=== PATIENT | female | born 1970 | race Caucasian/White ===

== ENCOUNTER 2019-04-21 19:37 | Inpatient (IN) | payer OTHER ==
[~2019-04-21] VITALS: Ht 162.6 cm; Wt 78.0 kg
[2019-04-21 20:08] VITALS: BP_SYST 136
[2019-04-21] MEDS ORDERED: PIPERACILLIN/TAZO 3.38 GM in D5W 50 ML IV ONE (22:15)
[2019-04-21] MEDS ORDERED: PIPERACILLIN/TAZOBACTAM 3.375 GM/VIAL (ZOSYN) IV ONE (22:31)
[2019-04-21 22:58] LABS: BILIRUBIN,URINE NEGATIVE (NEGATIVE); BLOOD, URINE 2+ (NEGATIVE); CLARITY/URINE HAZY (CLEAR); COLOR,URINE YELLOW (YELLOW); GLUCOSE,URINE TRACE (NEGATIVE); KETONES,URINE 1+ (NEGATIVE); LEUKOCYTE ESTERASE ,URINE 2+ (NEGATIVE); NITRITE, URINE POSITIVE (NEGATIVE); PROTEIN URINE NEGATIVE (NEGATIVE)
[2019-04-21 23:04] LABS: BASOPHILS % (AUTO) 0.3 % (0.0-2.0); EOSINOPHILS # (AUTO) 0.1 K/uL (0.0-0.4); EOSINOPHILS % (AUTO) 0.8 % (0.0-4.0); HEMATOCRIT 38.8 % (36-48); HEMOGLOBIN 12.8 g/dL (12.0-16.0); LYMPHOCYTES # (AUTO) 2.7 K/uL (1.0-5.5); LYMPHOCYTES % (AUTO) 16.9 % (20.5-51.5); MEAN CORPUSCULAR HEMOGLOBIN 28 pg (27-31); MEAN CORPUSCULAR HGB CONC 33 % (32-36); MEAN CORPUSCULAR VOLUME 85 fL (79.0-98.0); MONOCYTES # (AUTO) 1.3 K/uL (0.0-1.0); MONOCYTES % (AUTO) 8.4 % (1.7-9.3); NEUTROPHILS # (AUTO) 11.8 K/uL (1.8-7.7); NEUTROPHILS % (AUTO) 73.6 % (40.0-70.0); PLATELET COUNT (AUTO) 460 K/uL (130-430); RED BLOOD CELL COUNT(AUTO) 4.56 MIL/uL (4.2-6.2); RED CELL DISTRIBUTION WIDTH 12.7 % (9.0-15.0)
[2019-04-21 23:08] LABS: CREATININE 0.69 mg/dL (0.55-1.30); POTASSIUM 3.6 mmol/L (3.5-5.1)
[2019-04-21 23:09] LABS: RBC,URINE 20-50 /HPF (0-3)
[2019-04-21 23:10] LABS: BACTERIA,URINE MANY /HPF (None Seen); WBC,URINE 20-50 /HPF (0-3); YEAST,URINE Few /HPF (None Seen)
[2019-04-21] MEDS ORDERED: ASPI-1154 PO (23:11)
[2019-04-21 23:12] LABS: INR 1.1 (0.8-1.2); PROTHROMBIN TIME 11.1 SECS (9.5-12.5)
[2019-04-21 23:14] LABS: ALBUMIN 2.8 g/dL (3.4-4.8); TOTAL BILIRUBIN 0.6 mg/dL (0.0-1.0)
[2019-04-22] MEDS ORDERED: ENOXAPARIN SODIUM 40 MG/0.4 ML SYRINGE SUBCUT ONE (00:30)
[2019-04-22] MEDS ORDERED: DEXTROSE 50% JECT 50 ML DISP.SYRIN IVP PRN (00:45)
[2019-04-22] MEDS ORDERED: ONDANSETRON HCL 4 MG/2 ML VIAL IVP PRN (00:45)
[2019-04-22] MEDS ORDERED: HYDROcodone/ACETAMIN 5-325 MG TAB (NORCO/ VICODIN) PO PRN (00:45)
[2019-04-22] MEDS ORDERED: VANCOMYCIN HCL 1 GM/NS PREMIX 250 ML IV SCH (01:00)
[2019-04-22 01:25] VITALS: BP_SYST 120
[2019-04-22] MEDS ORDERED: PIPERACILLIN/TAZOBACTAM 3.375 GM/VIAL (ZOSYN) IV ONE (03:05)
[2019-04-22] MEDS ORDERED: VANCOMYCIN HCL 1000 MG/VIAL IV ONE (03:06)
[2019-04-22] MEDS: PIPERACILLIN/TAZO 3.375/DEX-IS 50 ML IV SCH ×3 (05:57→17:22)
[2019-04-22] MEDS: INSULIN REGULAR, HUMAN 100 UNITS/ML, 10 ML VIAL (humuLIN R) SUBCUT PRN ×4 (06:02→21:21)
[2019-04-22 06:34] LABS: BASOPHILS % (AUTO) 0.2 % (0.0-2.0); EOSINOPHILS # (AUTO) 0.2 K/uL (0.0-0.4); EOSINOPHILS % (AUTO) 1.3 % (0.0-4.0); HEMATOCRIT 35.9 % (36-48); HEMOGLOBIN 11.7 g/dL (12.0-16.0); LYMPHOCYTES # (AUTO) 3.8 K/uL (1.0-5.5); LYMPHOCYTES % (AUTO) 25.4 % (20.5-51.5); MEAN CORPUSCULAR HEMOGLOBIN 28 pg (27-31); MEAN CORPUSCULAR HGB CONC 33 % (32-36); MEAN CORPUSCULAR VOLUME 84 fL (79.0-98.0); MONOCYTES # (AUTO) 1.6 K/uL (0.0-1.0); MONOCYTES % (AUTO) 10.9 % (1.7-9.3); NEUTROPHILS # (AUTO) 9.2 K/uL (1.8-7.7); NEUTROPHILS % (AUTO) 62.2 % (40.0-70.0); PLATELET COUNT (AUTO) 430 K/uL (130-430); RED BLOOD CELL COUNT(AUTO) 4.27 MIL/uL (4.2-6.2); RED CELL DISTRIBUTION WIDTH 12.8 % (9.0-15.0); WHITE BLOOD COUNT (AUTO) 14.9 K/uL (4.8-10.8)
[2019-04-22 07:04] LABS: INR 1.1 (0.8-1.2); PROTHROMBIN TIME 11.5 SECS (9.5-12.5)
[2019-04-22 07:12] LABS: ALBUMIN 2.3 g/dL (3.4-4.8); CALCIUM 8.7 mg/dL (8.4-11.0); CREATININE 0.53 mg/dL (0.55-1.30); POTASSIUM 3.5 mmol/L (3.5-5.1); THYROID STIMULATING HORMONE 0.45 uIu/mL (0.34-4.82); TOTAL BILIRUBIN 0.5 mg/dL (0.0-1.0)
[2019-04-22 08:00] VITALS: BP_SYST 131
[2019-04-22] MEDS: ASPIRIN 81 MG TABLET(ECOTRIN) PO SCH (08:46)
[2019-04-22] MEDS: PANTOPRAZOLE SODIUM 40 MG TAB PO SCH (08:46)
[2019-04-22] MEDS: ENOXAPARIN SODIUM 40 MG/0.4 ML SYRINGE SUBCUT SCH (08:50)
[2019-04-22] MEDS: VANCOMYCIN HCL 1 GM/NS PREMIX 250 ML IV SCH ×2 (11:36→20:52)
[2019-04-22 11:37] VITALS: BP_SYST 129
[2019-04-22 11:42] LABS: BILIRUBIN,URINE NEGATIVE (NEGATIVE); BLOOD, URINE 2+ (NEGATIVE); CLARITY/URINE CLEAR (CLEAR); COLOR,URINE YELLOW (YELLOW); GLUCOSE,URINE NEGATIVE (NEGATIVE); KETONES,URINE 1+ (NEGATIVE); LEUKOCYTE ESTERASE ,URINE 2+ (NEGATIVE); NITRITE, URINE POSITIVE (NEGATIVE); PROTEIN URINE NEGATIVE (NEGATIVE)
[2019-04-22 11:56] LABS: BACTERIA,URINE FEW /HPF (None Seen)
[2019-04-22 15:36] VITALS: BP_SYST 135
[2019-04-22] MEDS ORDERED: BALSAM PERU/CASTOR OIL 60 GM OINT...G. TP ONE (16:15)
[2019-04-22 19:00] VITALS: BP_SYST 143
[2019-04-22 20:00] VITALS: BP_SYST 143
[2019-04-22] MEDS ORDERED: FLUCONAZOLE 200 mg/ NS 200 ML IV ONE (21:12)
[2019-04-22] MEDS: FLUCONAZOLE 200 mg/ NS 100 ML IV SCH (21:12)
[2019-04-23] VITALS: BP_SYST 120
[2019-04-23] MEDS: VANCOMYCIN HCL 1 GM/NS PREMIX 250 ML IV SCH ×3 (04:22→21:41)
[2019-04-23] MEDS: PIPERACILLIN/TAZO 3.375/DEX-IS 50 ML IV SCH ×5 (06:14→23:31)
[2019-04-23] MEDS: INSULIN REGULAR, HUMAN 100 UNITS/ML, 10 ML VIAL (humuLIN R) SUBCUT PRN ×4 (06:25→22:28)
[2019-04-23 07:00] LABS: CALCIUM 9.2 mg/dL (8.4-11.0); POTASSIUM 3.9 mmol/L (3.5-5.1)
[2019-04-23 07:08] LABS: CREATININE 0.75 mg/dL (0.55-1.30)
[2019-04-23 07:10] LABS: BASOPHILS # (AUTO) 0.1 K/uL (0.0-0.2); BASOPHILS % (AUTO) 0.4 % (0.0-2.0); EOSINOPHILS # (AUTO) 0.2 K/uL (0.0-0.4); EOSINOPHILS % (AUTO) 1.7 % (0.0-4.0); HEMATOCRIT 37.2 % (36-48); HEMOGLOBIN 12.2 g/dL (12.0-16.0); LYMPHOCYTES # (AUTO) 2.8 K/uL (1.0-5.5); LYMPHOCYTES % (AUTO) 20.7 % (20.5-51.5); MEAN CORPUSCULAR HEMOGLOBIN 28 pg (27-31); MEAN CORPUSCULAR HGB CONC 33 % (32-36); MONOCYTES # (AUTO) 1.3 K/uL (0.0-1.0); MONOCYTES % (AUTO) 9.7 % (1.7-9.3); NEUTROPHILS # (AUTO) 9.3 K/uL (1.8-7.7); NEUTROPHILS % (AUTO) 67.5 % (40.0-70.0); PLATELET COUNT (AUTO) 414 K/uL (130-430); RED BLOOD CELL COUNT(AUTO) 4.34 MIL/uL (4.2-6.2); RED CELL DISTRIBUTION WIDTH 12.6 % (9.0-15.0); WHITE BLOOD COUNT (AUTO) 13.7 K/uL (4.8-10.8)
[2019-04-23 07:16] LABS: MEAN CORPUSCULAR VOLUME 86 fL (79.0-98.0)
[2019-04-23 08:00] VITALS: BP_SYST 124
[2019-04-23] MEDS: PANTOPRAZOLE SODIUM 40 MG TAB PO SCH (08:58)
[2019-04-23] MEDS: ASPIRIN 81 MG TABLET(ECOTRIN) PO SCH (08:58)
[2019-04-23] MEDS: ENOXAPARIN SODIUM 40 MG/0.4 ML SYRINGE SUBCUT SCH (08:59)
[2019-04-23] MEDS: BALSAM PERU/CASTOR OIL 60 GM OINT...G. TP SCH (09:02)
[2019-04-23 12:00] VITALS: BP_SYST 116
[2019-04-23] MEDS ORDERED: INSULIN GLARGINE 100 UNITS/ML 10 ML VIAL SUBCUT ONE (14:00)
[2019-04-23 16:00] VITALS: BP_SYST 103
[2019-04-23 20:00] VITALS: BP_SYST 122
[2019-04-23] MEDS: FLUCONAZOLE 200 mg/ NS 100 ML IV SCH (20:14)
[2019-04-24 01:23] VITALS: BP_SYST 128
[2019-04-24] MEDS: VANCOMYCIN HCL 1 GM/NS PREMIX 250 ML IV SCH ×3 (04:35→20:52)
[2019-04-24] MEDS: PIPERACILLIN/TAZO 3.375/DEX-IS 50 ML IV SCH ×2 (06:31→11:40)
[2019-04-24] MEDS: INSULIN REGULAR, HUMAN 100 UNITS/ML, 10 ML VIAL (humuLIN R) SUBCUT PRN ×4 (06:33→20:53)
[2019-04-24 08:00] VITALS: BP_SYST 107
[2019-04-24] MEDS: ASPIRIN 81 MG TABLET(ECOTRIN) PO SCH (08:26)
[2019-04-24] MEDS: PANTOPRAZOLE SODIUM 40 MG TAB PO SCH (08:26)
[2019-04-24] MEDS: INSULIN GLARGINE 100 UNITS/ML 10 ML VIAL SUBCUT SCH (08:28)
[2019-04-24] MEDS: ENOXAPARIN SODIUM 40 MG/0.4 ML SYRINGE SUBCUT SCH (08:29)
[2019-04-24] MEDS: BALSAM PERU/CASTOR OIL 60 GM OINT...G. TP SCH (08:29)
[2019-04-24 11:30] VITALS: BP_SYST 117
[2019-04-24] MEDS: CEFTAZIDIME 1 GM in D5W 50 ML IV SCH ×2 (14:00→22:31)
[2019-04-24] MEDS: SILVER SULFADIAZINE 1%, 25 GM TOPICAL CREAM (SSD) TP SCH ×2 (14:01→20:57)
[2019-04-24 16:08] VITALS: BP_SYST 131
[2019-04-24] MEDS: FLUCONAZOLE 200 mg/ NS 100 ML IV SCH (19:37)
[2019-04-24 19:45] VITALS: BP_SYST 125
[2019-04-25 01:12] VITALS: BP_SYST 120
[2019-04-25] MEDS: VANCOMYCIN HCL 1 GM/NS PREMIX 250 ML IV SCH (04:14)
[2019-04-25] MEDS: CEFTAZIDIME 1 GM in D5W 50 ML IV SCH ×3 (06:14→21:47)
[2019-04-25] MEDS: INSULIN REGULAR, HUMAN 100 UNITS/ML, 10 ML VIAL (humuLIN R) SUBCUT PRN ×4 (06:17→20:33)
[2019-04-25 08:00] VITALS: BP_SYST 114
[2019-04-25] MEDS: ENOXAPARIN SODIUM 40 MG/0.4 ML SYRINGE SUBCUT SCH (09:23)
[2019-04-25] MEDS: PANTOPRAZOLE SODIUM 40 MG TAB PO SCH (09:23)
[2019-04-25] MEDS: ASPIRIN 81 MG TABLET(ECOTRIN) PO SCH (09:23)
[2019-04-25] MEDS: INSULIN GLARGINE 100 UNITS/ML 10 ML VIAL SUBCUT SCH (09:28)
[2019-04-25] MEDS: SILVER SULFADIAZINE 1%, 25 GM TOPICAL CREAM (SSD) TP SCH ×2 (09:32→20:35)
[2019-04-25] MEDS: BALSAM PERU/CASTOR OIL 60 GM OINT...G. TP SCH (09:32)
[2019-04-25 11:31] VITALS: BP_SYST 128
[2019-04-25] MEDS: VANCOMYCIN HCL 1,250 MG in NS 250 ML IV SCH ×2 (14:04→21:52)
[2019-04-25 15:27] VITALS: BP_SYST 141
[2019-04-25 19:25] LABS: PROTHROMBIN TIME 10.7 SECS (9.5-12.5)
[2019-04-25 20:24] VITALS: BP_SYST 149
[2019-04-25] MEDS: FLUCONAZOLE 200 mg/ NS 100 ML IV SCH (20:28)
[2019-04-26 00:30] VITALS: BP_SYST 129
[2019-04-26] MEDS: CEFTAZIDIME 1 GM in D5W 50 ML IV SCH ×3 (05:36→22:28)
[2019-04-26] MEDS: VANCOMYCIN HCL 1,250 MG in NS 250 ML IV SCH ×3 (05:44→20:24)
[2019-04-26] MEDS: INSULIN REGULAR, HUMAN 100 UNITS/ML, 10 ML VIAL (humuLIN R) SUBCUT PRN ×4 (06:22→20:31)
[2019-04-26 08:00] VITALS: BP_SYST 117
[2019-04-26] MEDS: PANTOPRAZOLE SODIUM 40 MG TAB PO SCH (09:02)
[2019-04-26] MEDS: ASPIRIN 81 MG TABLET(ECOTRIN) PO SCH (09:02)
[2019-04-26] MEDS: ENOXAPARIN SODIUM 40 MG/0.4 ML SYRINGE SUBCUT SCH (09:03)
[2019-04-26] MEDS: INSULIN GLARGINE 100 UNITS/ML 10 ML VIAL SUBCUT SCH (09:04)
[2019-04-26] MEDS: SILVER SULFADIAZINE 1%, 25 GM TOPICAL CREAM (SSD) TP SCH ×2 (09:05→22:27)
[2019-04-26] MEDS: BALSAM PERU/CASTOR OIL 60 GM OINT...G. TP SCH (09:05)
[2019-04-26 10:07] LABS: BASOPHILS % (AUTO) 0.4 % (0.0-2.0); EOSINOPHILS # (AUTO) 0.3 K/uL (0.0-0.4); EOSINOPHILS % (AUTO) 2.2 % (0.0-4.0); HEMATOCRIT 38.7 % (36-48); HEMOGLOBIN 12.9 g/dL (12.0-16.0); LYMPHOCYTES # (AUTO) 2.2 K/uL (1.0-5.5); LYMPHOCYTES % (AUTO) 16.6 % (20.5-51.5); MEAN CORPUSCULAR HEMOGLOBIN 28 pg (27-31); MEAN CORPUSCULAR HGB CONC 33 % (32-36); MEAN CORPUSCULAR VOLUME 85 fL (79.0-98.0); MONOCYTES % (AUTO) 7.8 % (1.7-9.3); NEUTROPHILS # (AUTO) 9.5 K/uL (1.8-7.7); PLATELET COUNT (AUTO) 449 K/uL (130-430); RED BLOOD CELL COUNT(AUTO) 4.58 MIL/uL (4.2-6.2); RED CELL DISTRIBUTION WIDTH 12.8 % (9.0-15.0)
[2019-04-26 10:16] LABS: CALCIUM 9.5 mg/dL (8.4-11.0); CREATININE 0.72 mg/dL (0.55-1.30); POTASSIUM 3.6 mmol/L (3.5-5.1)
[2019-04-26 11:11] VITALS: BP_SYST 131
[2019-04-26 15:38] VITALS: BP_SYST 109
[2019-04-26 19:52] VITALS: BP_SYST 125
[2019-04-26] MEDS: FLUCONAZOLE 200 mg/ NS 100 ML IV SCH (19:53)
[2019-04-27 00:02] VITALS: BP_SYST 136
[2019-04-27] MEDS: VANCOMYCIN HCL 1,250 MG in NS 250 ML IV SCH ×3 (05:18→23:12)
[2019-04-27] MEDS: CEFTAZIDIME 1 GM in D5W 50 ML IV SCH ×3 (05:19→22:37)
[2019-04-27] MEDS: INSULIN REGULAR, HUMAN 100 UNITS/ML, 10 ML VIAL (humuLIN R) SUBCUT PRN ×4 (06:06→21:37)
[2019-04-27 08:30] VITALS: BP_SYST 133
[2019-04-27] MEDS: PANTOPRAZOLE SODIUM 40 MG TAB PO SCH (09:19)
[2019-04-27] MEDS: ASPIRIN 81 MG TABLET(ECOTRIN) PO SCH (09:19)
[2019-04-27] MEDS: INSULIN GLARGINE 100 UNITS/ML 10 ML VIAL SUBCUT SCH (09:21)
[2019-04-27] MEDS: ENOXAPARIN SODIUM 40 MG/0.4 ML SYRINGE SUBCUT SCH (09:21)
[2019-04-27] MEDS: SILVER SULFADIAZINE 1%, 25 GM TOPICAL CREAM (SSD) TP SCH ×2 (09:25→21:39)
[2019-04-27] MEDS: BALSAM PERU/CASTOR OIL 60 GM OINT...G. TP SCH (09:25)
[2019-04-27 11:58] VITALS: BP_SYST 125
[2019-04-27 15:41] VITALS: BP_SYST 113
[2019-04-27] MEDS: FLUCONAZOLE 200 mg/ NS 100 ML IV SCH (21:19)
[2019-04-27 23:22] VITALS: BP_SYST 128
[2019-04-28] MEDS: CEFTAZIDIME 1 GM in D5W 50 ML IV SCH ×3 (05:31→23:38)
[2019-04-28] MEDS: INSULIN REGULAR, HUMAN 100 UNITS/ML, 10 ML VIAL (humuLIN R) SUBCUT PRN ×2 (06:02→11:50)
[2019-04-28] MEDS: VANCOMYCIN HCL 1,250 MG in NS 250 ML IV SCH ×3 (06:38→22:25)
[2019-04-28 07:35] LABS: BASOPHILS # (AUTO) 0.1 K/uL (0.0-0.2); BASOPHILS % (AUTO) 0.7 % (0.0-2.0); EOSINOPHILS # (AUTO) 0.3 K/uL (0.0-0.4); EOSINOPHILS % (AUTO) 2.9 % (0.0-4.0); HEMATOCRIT 36.7 % (36-48); HEMOGLOBIN 12.1 g/dL (12.0-16.0); LYMPHOCYTES # (AUTO) 2.6 K/uL (1.0-5.5); LYMPHOCYTES % (AUTO) 21.9 % (20.5-51.5); MEAN CORPUSCULAR HEMOGLOBIN 28 pg (27-31); MEAN CORPUSCULAR HGB CONC 33 % (32-36); MEAN CORPUSCULAR VOLUME 85 fL (79.0-98.0); MONOCYTES # (AUTO) 1.1 K/uL (0.0-1.0); MONOCYTES % (AUTO) 9.2 % (1.7-9.3); NEUTROPHILS # (AUTO) 7.7 K/uL (1.8-7.7); NEUTROPHILS % (AUTO) 65.3 % (40.0-70.0); PLATELET COUNT (AUTO) 405 K/uL (130-430); RED BLOOD CELL COUNT(AUTO) 4.32 MIL/uL (4.2-6.2); RED CELL DISTRIBUTION WIDTH 12.5 % (9.0-15.0); WHITE BLOOD COUNT (AUTO) 11.8 K/uL (4.8-10.8)
[2019-04-28 07:38] LABS: ALBUMIN 2.3 g/dL (3.4-4.8); CALCIUM 9.5 mg/dL (8.4-11.0); CREATININE 0.84 mg/dL (0.55-1.30); POTASSIUM 3.6 mmol/L (3.5-5.1); TOTAL BILIRUBIN 0.3 mg/dL (0.0-1.0)
[2019-04-28 08:00] VITALS: BP_SYST 133
[2019-04-28] MEDS: BALSAM PERU/CASTOR OIL 60 GM OINT...G. TP SCH (09:39)
[2019-04-28] MEDS: SILVER SULFADIAZINE 1%, 25 GM TOPICAL CREAM (SSD) TP SCH ×2 (09:39→21:06)
[2019-04-28] MEDS: ASPIRIN 81 MG TABLET(ECOTRIN) PO SCH (09:40)
[2019-04-28] MEDS: PANTOPRAZOLE SODIUM 40 MG TAB PO SCH (09:40)
[2019-04-28] MEDS: ENOXAPARIN SODIUM 40 MG/0.4 ML SYRINGE SUBCUT SCH (09:43)
[2019-04-28] MEDS: INSULIN GLARGINE 100 UNITS/ML 10 ML VIAL SUBCUT SCH (09:43)
[2019-04-28 12:00] VITALS: BP_SYST 127
[2019-04-28] MEDS ORDERED: DEXTROSE 50% JECT 50 ML DISP.SYRIN IVP PRN (14:30)
[2019-04-28 16:10] VITALS: BP_SYST 140
[2019-04-28] MEDS: INSULIN Lispro 100 UNITS/ML VIAL (humaLOG) SUBCUT SCH (18:08)
[2019-04-28] MEDS: INSULIN LISPRO SLIDING SCALE 100 UNITS/ML VIAL (humaLOG) SUBCUT PRN ×2 (18:09→21:17)
[2019-04-28] MEDS: FLUCONAZOLE 200 mg/ NS 100 ML IV SCH (21:02)
[2019-04-29 00:24] VITALS: BP_SYST 135
[2019-04-29] MEDS: CEFTAZIDIME 1 GM in D5W 50 ML IV SCH ×3 (05:11→22:32)
[2019-04-29] MEDS: VANCOMYCIN HCL 1,250 MG in NS 250 ML IV SCH ×3 (06:17→20:24)
[2019-04-29] MEDS: INSULIN Lispro 100 UNITS/ML VIAL (humaLOG) SUBCUT SCH ×3 (06:32→16:37)
[2019-04-29] MEDS: INSULIN GLARGINE 100 UNITS/ML 10 ML VIAL SUBCUT SCH ×2 (06:32→18:00)
[2019-04-29 07:56] VITALS: BP_SYST 130
[2019-04-29] MEDS ORDERED: POLYMYXIN 500,000/BACIT.10,000 UNITS in NS IRR 1 L IR ONE (08:25)
[2019-04-29] MEDS ORDERED: MIDAZOLAM HCL 5 MG/5 ML VIAL IVP ONE (08:30)
[2019-04-29] MEDS ORDERED: NS 1000 ML IV.SOLN IV ONE (08:30)
[2019-04-29] MEDS ORDERED: ONDANSETRON HCL 4 MG/2 ML VIAL IVP ONE (08:30)
[2019-04-29] MEDS ORDERED: DEXAMETHASONE SOD PHOSPHATE 4 MG/ML VIAL IVP ONE (08:30)
[2019-04-29] MEDS ORDERED: LR 1,000 ML IV.SOLN IV ONE ×2 (08:30)
[2019-04-29] MEDS ORDERED: ROCURONIUM BROMIDE 10 MG/ML (ZEMURON) IV ONE (08:30)
[2019-04-29] MEDS ORDERED: PROPOFOL 200MG/ 20ML VIAL (DIPRIVAN) IV ONE (08:30)
[2019-04-29] MEDS ORDERED: BUPIVACAINE /PF 0.5% 30 ML VIAL INJ ONE (08:30)
[2019-04-29] MEDS ORDERED: KETOROLAC TROMETHAMINE 30 MG VIAL IVP ONE (08:30)
[2019-04-29] MEDS ORDERED: SEVOFLURANE 15 MIN GAS INH ONE (08:30)
[2019-04-29] MEDS ORDERED: fentaNYL CITRATE 250 MCG/5 ML AMP IV ONE (08:30)
[2019-04-29] MEDS: PANTOPRAZOLE SODIUM 40 MG TAB PO SCH (08:42)
[2019-04-29] MEDS: ASPIRIN 81 MG TABLET(ECOTRIN) PO SCH (08:42)
[2019-04-29] MEDS: ENOXAPARIN SODIUM 40 MG/0.4 ML SYRINGE SUBCUT SCH (08:42)
[2019-04-29] MEDS: SILVER SULFADIAZINE 1%, 25 GM TOPICAL CREAM (SSD) TP SCH ×2 (08:43→20:26)
[2019-04-29] MEDS: BALSAM PERU/CASTOR OIL 60 GM OINT...G. TP SCH (08:43)
[2019-04-29] MEDS ORDERED: LR 1,000 ML IV SCH (09:37)
[2019-04-29] MEDS ORDERED: HYDROmorphone 2 MG/ML VIAL IVP PRN ×2 (09:45)
[2019-04-29] MEDS ORDERED: HYDROmorphone 1 MG INJ. 1 MG/ML AMPUL IVP PRN (09:45)
[2019-04-29] MEDS ORDERED: MEPERIDINE HCL/PF 25 MG/ML DISP.SYRIN IVP PRN (09:45)
[2019-04-29] MEDS: INSULIN REGULAR, HUMAN 100 UNITS/ML, 10 ML VIAL IVP ONE ×2 (11:00→11:48)
[2019-04-29] MEDS ORDERED: INSULIN REGULAR, HUMAN 100 UNITS/ML, 10 ML VIAL (humuLIN R) ONE (11:04)
[2019-04-29 11:45] VITALS: BP_SYST 134
[2019-04-29] MEDS: INSULIN LISPRO SLIDING SCALE 100 UNITS/ML VIAL (humaLOG) SUBCUT PRN ×3 (12:01→20:24)
[2019-04-29] MEDS ORDERED: INSULIN GLARGINE 100 UNITS/ML 10 ML VIAL SUBCUT SCH (19:00)
[2019-04-29 20:00] VITALS: BP_SYST 138
[2019-04-30 00:22] VITALS: BP_SYST 144
[2019-04-30] MEDS: VANCOMYCIN HCL 1,250 MG in NS 250 ML IV SCH ×2 (04:06→12:10)
[2019-04-30 05:05] LABS: BASOPHILS # (AUTO) 0.1 K/uL (0.0-0.2); BASOPHILS % (AUTO) 0.7 % (0.0-2.0); EOSINOPHILS # (AUTO) 0.1 K/uL (0.0-0.4); EOSINOPHILS % (AUTO) 0.7 % (0.0-4.0); HEMATOCRIT 34.6 % (36-48); HEMOGLOBIN 11.3 g/dL (12.0-16.0); LYMPHOCYTES % (AUTO) 12.8 % (20.5-51.5); MEAN CORPUSCULAR HEMOGLOBIN 28 pg (27-31); MEAN CORPUSCULAR HGB CONC 33 % (32-36); MEAN CORPUSCULAR VOLUME 85 fL (79.0-98.0); MONOCYTES # (AUTO) 1.1 K/uL (0.0-1.0); MONOCYTES % (AUTO) 7.1 % (1.7-9.3); NEUTROPHILS # (AUTO) 12.3 K/uL (1.8-7.7); NEUTROPHILS % (AUTO) 78.7 % (40.0-70.0); PLATELET COUNT (AUTO) 376 K/uL (130-430); RED BLOOD CELL COUNT(AUTO) 4.07 MIL/uL (4.2-6.2); RED CELL DISTRIBUTION WIDTH 12.7 % (9.0-15.0); WHITE BLOOD COUNT (AUTO) 15.7 K/uL (4.8-10.8)
[2019-04-30 05:18] LABS: CALCIUM 8.9 mg/dL (8.4-11.0); CREATININE 0.82 mg/dL (0.55-1.30); POTASSIUM 3.4 mmol/L (3.5-5.1)
[2019-04-30] MEDS: CEFTAZIDIME 1 GM in D5W 50 ML IV SCH ×3 (06:12→21:30)
[2019-04-30] MEDS: INSULIN GLARGINE 100 UNITS/ML 10 ML VIAL SUBCUT SCH (06:13)
[2019-04-30] MEDS: INSULIN Lispro 100 UNITS/ML VIAL (humaLOG) SUBCUT SCH ×3 (06:14→17:33)
[2019-04-30] MEDS: INSULIN LISPRO SLIDING SCALE 100 UNITS/ML VIAL (humaLOG) SUBCUT PRN ×4 (06:15→21:30)
[2019-04-30] MEDS: HYDROcodone/ACETAMIN 5-325 MG TAB (NORCO/ VICODIN) PO PRN ×2 (06:59→17:36)
[2019-04-30 08:55] VITALS: BP_SYST 110
[2019-04-30] MEDS: ASPIRIN 81 MG TABLET(ECOTRIN) PO SCH (08:57)
[2019-04-30] MEDS: PANTOPRAZOLE SODIUM 40 MG TAB PO SCH (08:58)
[2019-04-30] MEDS: SILVER SULFADIAZINE 1%, 25 GM TOPICAL CREAM (SSD) TP SCH ×2 (08:59→21:30)
[2019-04-30] MEDS: ENOXAPARIN SODIUM 40 MG/0.4 ML SYRINGE SUBCUT SCH (08:59)
[2019-04-30] MEDS: BALSAM PERU/CASTOR OIL 60 GM OINT...G. TP SCH (09:00)
[2019-04-30 11:31] VITALS: BP_SYST 113
[2019-04-30] MEDS ORDERED: POTASSIUM CHLORIDE 20 MEQ TAB.PRT.SR PO ONE (12:15)
[2019-04-30 15:05] VITALS: BP_SYST 110
[2019-04-30 20:00] VITALS: BP_SYST 117
[2019-05-01 01:39] VITALS: BP_SYST 128
[2019-05-01] MEDS: MORPHINE 4 MG/ML INJ. SYRINGE IVP PRN ×2 (02:23→06:25)
[2019-05-01] MEDS: VANCOMYCIN HCL 1 GM/NS PREMIX 250 ML IV SCH ×3 (02:25→18:09)
[2019-05-01] MEDS: INSULIN Lispro 100 UNITS/ML VIAL (humaLOG) SUBCUT SCH ×3 (06:27→18:09)
[2019-05-01] MEDS: INSULIN GLARGINE 100 UNITS/ML 10 ML VIAL SUBCUT SCH (06:28)
[2019-05-01] MEDS: INSULIN LISPRO SLIDING SCALE 100 UNITS/ML VIAL (humaLOG) SUBCUT PRN ×2 (06:29→21:27)
[2019-05-01] MEDS: CEFTAZIDIME 1 GM in D5W 50 ML IV SCH ×3 (06:29→21:28)
[2019-05-01] MEDS: PANTOPRAZOLE SODIUM 40 MG TAB PO SCH (08:33)
[2019-05-01] MEDS: ASPIRIN 81 MG TABLET(ECOTRIN) PO SCH (08:34)
[2019-05-01] MEDS: ENOXAPARIN SODIUM 40 MG/0.4 ML SYRINGE SUBCUT SCH (08:36)
[2019-05-01 08:52] LABS: BASOPHILS # (AUTO) 0.1 K/uL (0.0-0.2); BASOPHILS % (AUTO) 0.6 % (0.0-2.0); EOSINOPHILS # (AUTO) 0.5 K/uL (0.0-0.4); EOSINOPHILS % (AUTO) 4.3 % (0.0-4.0); HEMATOCRIT 35.1 % (36-48); HEMOGLOBIN 11.7 g/dL (12.0-16.0); LYMPHOCYTES # (AUTO) 2.1 K/uL (1.0-5.5); LYMPHOCYTES % (AUTO) 19.7 % (20.5-51.5); MEAN CORPUSCULAR HEMOGLOBIN 28 pg (27-31); MEAN CORPUSCULAR HGB CONC 33 % (32-36); MEAN CORPUSCULAR VOLUME 85 fL (79.0-98.0); MONOCYTES % (AUTO) 9.2 % (1.7-9.3); NEUTROPHILS # (AUTO) 7.1 K/uL (1.8-7.7); NEUTROPHILS % (AUTO) 66.2 % (40.0-70.0); PLATELET COUNT (AUTO) 376 K/uL (130-430); RED BLOOD CELL COUNT(AUTO) 4.12 MIL/uL (4.2-6.2); WHITE BLOOD COUNT (AUTO) 10.7 K/uL (4.8-10.8)
[2019-05-01] MEDS: BALSAM PERU/CASTOR OIL 60 GM OINT...G. TP SCH (09:00)
[2019-05-01 09:24] LABS: CALCIUM 9.2 mg/dL (8.4-11.0); CREATININE 0.83 mg/dL (0.55-1.30); POTASSIUM 3.8 mmol/L (3.5-5.1)
[2019-05-01] MEDS: SILVER SULFADIAZINE 1%, 25 GM TOPICAL CREAM (SSD) TP SCH ×2 (09:30→21:26)
[2019-05-01 10:55] VITALS: BP_SYST 128
[2019-05-01 11:25] VITALS: BP_SYST 120
[2019-05-01] MEDS: PREGABALIN 25 MG CAPSULE (LYRICA) PO SCH ×2 (15:00→21:25)
[2019-05-01 15:03] VITALS: BP_SYST 120
[2019-05-01 15:24] VITALS: BP_SYST 125
[2019-05-01] MEDS: METOCLOPRAMIDE HCL 10 MG TABLET PO SCH ×2 (17:53→21:25)
[2019-05-01 20:00] VITALS: BP_SYST 118
[2019-05-01] MEDS ORDERED: MORPHINE 4 MG/ML INJ. SYRINGE IVP PRN ×2 (21:00→21:15)
[2019-05-01] MEDS ORDERED: HYDROcodone/ACETAMIN 5-325 MG TAB (NORCO/ VICODIN) PO PRN (21:00)
[2019-05-01] MEDS: HYDROcodone/ACETAMIN 5-325 MG TAB (NORCO/ VICODIN) PO PRN (21:31)
[2019-05-02] VITALS: BP_SYST 122
[2019-05-02] MEDS: VANCOMYCIN HCL 1 GM/NS PREMIX 250 ML IV SCH ×3 (02:59→17:18)
[2019-05-02] MEDS: INSULIN GLARGINE 100 UNITS/ML 10 ML VIAL SUBCUT SCH (06:06)
[2019-05-02] MEDS: INSULIN Lispro 100 UNITS/ML VIAL (humaLOG) SUBCUT SCH ×3 (06:06→16:44)
[2019-05-02] MEDS: HYDROcodone/ACETAMIN 5-325 MG TAB (NORCO/ VICODIN) PO PRN ×2 (06:07→19:01)
[2019-05-02] MEDS: METOCLOPRAMIDE HCL 10 MG TABLET PO SCH ×3 (06:07→16:33)
[2019-05-02] MEDS: CEFTAZIDIME 1 GM in D5W 50 ML IV SCH (06:08)
[2019-05-02 08:00] VITALS: BP_SYST 121
[2019-05-02] MEDS: ENOXAPARIN SODIUM 40 MG/0.4 ML SYRINGE SUBCUT SCH (09:20)
[2019-05-02] MEDS: PREGABALIN 25 MG CAPSULE (LYRICA) PO SCH ×2 (09:21→15:17)
[2019-05-02] MEDS: PANTOPRAZOLE SODIUM 40 MG TAB PO SCH (09:21)
[2019-05-02] MEDS: ASPIRIN 81 MG TABLET(ECOTRIN) PO SCH (09:21)
[2019-05-02] MEDS: SILVER SULFADIAZINE 1%, 25 GM TOPICAL CREAM (SSD) TP SCH (09:28)
[2019-05-02] MEDS: BALSAM PERU/CASTOR OIL 60 GM OINT...G. TP SCH (09:28)
[2019-05-02] MEDS: INSULIN LISPRO SLIDING SCALE 100 UNITS/ML VIAL (humaLOG) SUBCUT PRN ×2 (11:14→16:45)
[2019-05-02 16:00] VITALS: BP_SYST 116
[2019-05-02 18:35] VITALS: BP_SYST 125
[2019-05-02] MEDS ORDERED: CILOSTAZOL 50 MG TABLET (PLETAL) PO SCH (21:00)
[2019-05-02] MEDS ORDERED: CEFEPIME 1 GM in D5W 50 ML IV SCH (21:00)
== END 2019-05-02 20:11 | disposition home health service (06) | DRG 853 ==
LOC: EDBD 19:37 → SED 19:37 → SMU 23:47 → OBSVTOIN 04-22 15:33
PROVIDERS: ADMIT Internal Medicine; ATTEND Internal Medicine
PROC: 02HV33Z Insertion of Infusion Device into Superior Vena Cava, Percutaneous Approach (ICD-10-PCS; principal; 2019-04-26)
PROC: B548ZZA Ultrasonography of Superior Vena Cava, Guidance (ICD-10-PCS; 2019-04-26)
PROC: 0Y6N0Z9 Detachment at Left Foot, Partial 1st Ray, Open Approach (ICD-10-PCS; 2019-04-29)
DX: A41.9 Sepsis, unspecified organism (principal); E43 Unspecified severe protein-calorie malnutrition; M72.6 Necrotizing fasciitis; E11.52 Type 2 diabetes mellitus with diabetic peripheral angiopathy with gangrene; N39.0 Urinary tract infection, site not specified; M86.8X7 Other osteomyelitis, ankle and foot; L03.116 Cellulitis of left lower limb; I96 Gangrene, not elsewhere classified; B96.20 Unspecified Escherichia coli [E. coli] as the cause of diseases classified elsewhere; B96.4 Proteus (mirabilis) (morganii) as the cause of diseases classified elsewhere; B95.4 Other streptococcus as the cause of diseases classified elsewhere; B96.89 Other specified bacterial agents as the cause of diseases classified elsewhere; L97.529 Non-pressure chronic ulcer of other part of left foot with unspecified severity; L97.519 Non-pressure chronic ulcer of other part of right foot with unspecified severity; I10 Essential (primary) hypertension; E11.621 Type 2 diabetes mellitus with foot ulcer; E11.69 Type 2 diabetes mellitus with other specified complication; Z85.42 Personal history of malignant neoplasm of other parts of uterus; Z90.710 Acquired absence of both cervix and uterus; Z83.3 Family history of diabetes mellitus; Z79.82 Long term (current) use of aspirin; Z68.29 Body mass index [BMI] 29.0-29.9, adult
CPT/HCPCS: 36415; 71045; 80048; 80053; 80061; 80202-TC; 81000-TC; 82306; 82948; 82962; 83036; 83605; 84443-TC; 84484; 84703; 85025; 85610-TC; 85730-TC; 86870; 86886; 86900; 86901; 87040-TC; 87070-TC; 87075-TC; 87081; 87086; 87186-TC; 87205-TC; 88305; 93005; 93923; 93970; 96365; 96372; 97116-GP; 97530-GP; 99285; C1751; C1769; G0378; J0692; J0713; J1100; J1450; J1650; J1815; J1885; J2250; J2270; J2405; J2543; J2704; J3010; J3370; J3490; J7030; J7050; J7060; J7120; J8597